=== PATIENT | female | born 1985 | race Caucasian/White ===

== ENCOUNTER 2025-01-14 00:23 | Emergency (ER) | payer SELFPAY ==
[~2025-01-14] VITALS: Ht 162.6 cm; Wt 81.6 kg
[2025-01-14 00:48] VITALS: O2SAT 98
== END 2025-01-14 02:10 | disposition left against medical advice (07) ==
LOC: ER 00:23
DX: T21.04XA Burn of unspecified degree of lower back, initial encounter (principal); Z53.21 Procedure and treatment not carried out due to patient leaving prior to being seen by health care provider; X08.8XXA Exposure to other specified smoke, fire and flames, initial encounter; Y93.89 Activity, other specified; Y92.89 Other specified places as the place of occurrence of the external cause; Y99.8 Other external cause status
CPT/HCPCS: A4606; A4663